=== PATIENT | male | born 1970 | race Caucasian/White ===

== ENCOUNTER 2017-04-18 23:16 | Emergency (ER) | payer BC ==
[~2017-04-18] VITALS: Ht 177.8 cm; Wt 106.5 kg
[~2017-04-18 23:16] MED LIST: CLINDAMYCIN HC300 MG PO; INDOCIN25 MG PO; KEFLEX500 MG PO; LORTAB 5-325 M1 EACH PO; MOTRIN600 MG PO; MOTRIN800 MG PO; NAPROXEN500 MG PO; NOHOMEMEDS; NORCO 5/3251 TABLET PO; PERCOCET 5/31 TABLET PO
[2017-04-18 23:39] LABS: HEMATOCRIT 44.8 % (38.0-50.0); MCH 30.6 PG (29.0-34.0); MCHC 34.8 G/DL (30.0-36.0); MEAN PLAT.VOLUME 11.3 uM^3 (9.0-12.4); PLATELET COUNT 190 K/uL (156-360); RBC DIS.WIDTH-CV 13.1 % (11.8-14.6); RBC DIS.WIDTH-SD 42.1 % (39-53); RED BLOOD COUNT 5.09 M/uL (4.00-5.50); WHITE BLOOD COUNT 7.1 K/uL (4.1-10.2)
[2017-04-18 23:59] LABS: CHLORIDE 104 mEq/L (99-109); POTASSIUM 4.1 mEq/L (3.7-5.4); SODIUM 140 mEq/L (136-147)
[2017-04-19] LABS: GLUCOSE 162 mg/dL (70-99)
[2017-04-19 00:02] LABS: ANION GAP 9 MEQ/L (2-14)
[2017-04-19 00:03] LABS: TROP-I INTERPRETATION NEGATIVE; TROPONIN-I < 0.01 ng/mL (0.0-0.30)
[2017-04-19 00:04] LABS: GFR ESTIMATE (CALCULATED) > 59 mL/min/
[2017-04-19 00:05] LABS: UREA NITROGEN (BUN) 13 mg/dL (9-23)
[2017-04-19 02:11] LABS: D-DIMER ELISA 0.92 mg/L FEU (< 0.57)
[2017-04-19 02:31] LABS: TROP-I INTERPRETATION NEGATIVE; TROPONIN-I < 0.01 ng/mL (0.0-0.30)
[2017-04-19 03:50] VITALS: BP 128/84
== END 2017-04-19 03:53 | disposition home or self-care (01) ==
LOC: EME 23:16
PROVIDERS: Emergency Medicine
DX: R07.9 Chest pain, unspecified (principal)
CPT/HCPCS: 71020; 71275; 80048; 84484; 85027; 85379; 93005; 99281; 99284

== ENCOUNTER 2017-10-12 10:06 | Emergency (ER) | payer SELFPAY ==
[~2017-10-12] VITALS: Ht 177.8 cm; Wt 102.9 kg
[2017-10-12 12:09] LABS: HEMATOCRIT 43.9 % (38.0-50.0); MCH 31.1 PG (29.0-34.0); MCHC 35.8 G/DL (30.0-36.0); MCV 86.9 FL (86-99); MEAN PLAT.VOLUME 11.5 uM^3 (9.0-12.4); PLATELET COUNT 202 K/uL (156-360); RBC DIS.WIDTH-CV 12.4 % (11.8-14.6); RBC DIS.WIDTH-SD 39.2 % (39-53); RED BLOOD COUNT 5.05 M/uL (4.00-5.50)
[2017-10-12 13:36] LABS: ERTH.SED.RATE 12 MM/HR (0-15)
[2017-10-12] MEDS ORDERED: ULTRAM50 MG PO (13:57)
[2017-10-12] MEDS ORDERED: BACTRIM,SEPT1 TABLET PO (13:57)
[2017-10-12] MEDS ORDERED: INDOMETHACIN50 MG PO (13:57)
[2017-10-12 14:10] VITALS: BP 106/73
== END 2017-10-12 14:11 | disposition home or self-care (01) ==
LOC: EME 10:06
PROVIDERS: Nurse Practitioner Family
DX: M70.22 Olecranon bursitis, left elbow (principal); X50.3XXA Overexertion from repetitive movements, initial encounter
CPT/HCPCS: 73080; 85027; 85651; 86140; 99281; 99285; J1885